=== PATIENT | female | born 1945 | race Caucasian/White ===

== ENCOUNTER 2017-06-10 06:31 | Day surgery (SDC) | payer MEDICARE, BC ==
[2017-06-10] MEDS ORDERED: Dextrose 5%-Lactated Ringers 1,000 ML IV SCH (07:00)
[2017-06-10] MEDS ORDERED: Glycopyrrolate 0.2 MG/ML 2 ML SDV IVPUSH ONE (07:00)
[2017-06-10] MEDS ORDERED: Midazolam 1 MG/ML 2 ML SDV ONE (08:28)
[2017-06-10] MEDS ORDERED: fentaNYL 100 MCG/2 ML SDV ONE (08:28)
[2017-06-10] MEDS ORDERED: Propofol 200 MG/20 ML SDV ONE (08:28)
[2017-06-10 09:41] VITALS: BP 146/68
--- NOTE | 2017-06-14 09:25 | OR ---
DATE OF PROCEDURE: 06/10/2017 PREOPERATIVE DIAGNOSIS: Epigastric discomfort with history of gastric bezoar. POSTOPERATIVE DIAGNOSES: 1. 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 2. Large gastric bezoar. OPERATIVE PROCEDURE: Upper GI endoscopy with biopsy of esophagogastric junction for histologic evaluation. ANESTHESIA: IV sedation. INDICATION FOR PROCEDURE: A 72-year-old female presenting with some worsening epigastric discomfort. This occurs particularly in the postprandial period and is associated with certain foods, to a greater extent particularly meats. She has a history of a large gastric bezoar in the past and has been treated with a combination of Reglan, along with proton pump inhibitors. Presently, she is off both of those, and plan is to proceed with an upper GI endoscopy with biopsies as indicated. Potential risks including bleeding and perforation were discussed, and the patient wishes to proceed. DETAILS OF PROCEDURE: The patient was taken to the operating room and placed in a left lateral decubitus position. IV sedation was administered, after which the upper GI endoscope was passed orally through the length of the esophagus and into the stomach with retroflexion view of the fundus, and thereafter through the pyloric channel and into the proximal duodenum. The findings included normal hypopharynx, larynx, upper esophageal sphincter, esophageal body. At the EG junction, she was noted to have a small hiatal hernia. There was some upward extension of the gastroesophageal junction mucosal line, suggestive of possible underlying Brown's esophagus. There was however little in the way of gross inflammation. No stricturing or other signs of neoplasia. Within the stomach, the patient had a large bezoar consisting of collection of old food, predominantly vegetable matter. This was not associated with any significant inflammation of the gastric mucosal surfaces. The pyloric channel was wide open and the duodenum at the junction of the third and fourth portions was unremarkable. At this point, the scope was then withdrawn into esophagogastric junction. Biopsies were obtained at that area for histologic evaluation. Minimal bleeding from the biopsy sites was seen, and the procedure was then concluded. PLAN: The plan will be to start the patient on Reglan 10 mg p.o. 1/2 hour a.c. and at bedtime. She is instructed that, if she feels that she is having side effects from this, she can cut the pills in half. Otherwise, I do not think we need to restart the patient on either H2 graeme or proton pump inhibitor, as neither the stomach nor the esophagogastric junction show significant inflammation. This would appear to be primarily gastroparesis issue, and the prokinetic agents may be useful. Also have the dietary people review the anti-bezoar diet regimen with the patient and prior to discharge today, and follow up will be with Dr. Moore in [facility] in 3 weeks. Milo Moore MD /[id number]
== END 2017-06-10 10:35 | disposition home or self-care (01) ==
LOC: JP.SDS 06:31
PROVIDERS: ATTEND Surgery
DX: K29.50 Unspecified chronic gastritis without bleeding (principal); K21.0 Gastro-esophageal reflux disease with esophagitis; T18.2XXA Foreign body in stomach, initial encounter; K44.9 Diaphragmatic hernia without obstruction or gangrene; I10 Essential (primary) hypertension; E11.9 Type 2 diabetes mellitus without complications; Z88.8 Allergy status to other drugs, medicaments and biological substances; Z91.011 Allergy to milk products
CPT/HCPCS: 43239; J2250; J2704; J3010; J7042; 88305; J3490

== ENCOUNTER 2017-12-18 13:10 | Emergency (ER) | payer MEDICARE, BC ==
[2017-12-18] MEDS ORDERED: Aspirin 81 MG Tab.Chew ONE (13:21)
[2017-12-18] MEDS ORDERED: Aspirin 81 MG Tab.Chew PO ONE (13:24)
[2017-12-18] MEDS: Nitroglycerin 0.4 MG Tab.SL SL PRN ×2 (13:33→14:00)
[2017-12-18] MEDS: Sodium Chloride 0.9% 10 ML Syringe FLUSH PRN ×2 (13:34→14:17)
--- NOTE | 2017-12-18 13:55 | EDM.PDOC ---
ED HPI GENERAL MEDICAL PROBLEM - General Chief Complaint: Chest Pain Stated Complaint: CHEST PAIN Time Seen by Provider: 12/18/17 13:27 Source of Information: Reports: Patient History Limitations: Reports: No Limitations - History of Present Illness INITIAL COMMENTS - FREE TEXT/NARRATIVE: Mrs. Steele presents to the emergency room for complaints of left chest pressure with radiation to her left arm that started at 1200 today. She reports when she developed the pain at home she became diaphoretic. She denies nausea, vomiting or difficulty breathing. She states she took 1/2 tab baby ASA this morning. She reports history of DM II, stress test in the past that was negative. - Related Data Allergies Allergy/AdvReac Type Severity Reaction Status Date / Time milk Allergy Rash Verified 06/10/17 06:52 codeine AdvReac Nausea Verified 07/03/14 06:46 lisinopril AdvReac Cough Verified 07/03/14 06:46 Home Meds: Home Meds Aspirin [Halfprin] 81 mg PO DAILY 06/01/14 [History] Calcium Carbonate/Vitamin D3 [Calcium 500 + Vit D 200 Caplet] 1 each PO BID 07/15 [History] Cholecalciferol (Vitamin D3) [Vitamin D] 1,000 unit PO DAILY 06/01/14 [History] Losartan Potassium 25 mg PO DAILY 06/01/14 [History] Metoclopramide HCl [Reglan] 5 mg PO BID 06/01/14 [History] Multivitamin with Minerals [Multiple Vitamin] 1 tab PO DAILY 06/01/14 [History] [place]-3 Fatty Acids [[place]-3] 1,000 mg PO DAILY 06/01/14 [History] atorvaSTATin Calcium [Atorvastatin Calcium] 20 mg PO DAILY 06/01/14 [History] metFORMIN [Glucophage] 750 mg PO QAM 06/01/14 [History] Cyanocobalamin (Vitamin B12) [Vitamin B12] 1,000 mcg PO DAILY 06/04/14 [History] Papaya [Papaya Enzyme] 4 tab PO ACBRKBED PRN 06/29/14 [History] metFORMIN [Glucophage] 500 mg PO QPM 06/29/14 [History] Sennosides/Docusate Sodium [Senokot-S Tablet] 2 tab PO DAILY PRN 06/09/17 [ History] Past Medical History HEENT History: Reports: Impaired Vision Cardiovascular History: Reports: High Cholesterol Gastrointestinal History: Reports: Chronic Constipation, GERD, Hiatal Hernia Genitourinary History: Reports: None MAKEUP ARTIST History: Reports: Fibroids, Musculoskeletal History: Reports: None Endocrine/Metabolic History: Reports: Diabetes, Type II Hematologic History: Reports: Anemia - Infectious Disease History Infectious Disease History: Reports: C-Difficile, Measles, Mumps - Past Surgical History Head Surgeries/Procedures: Reports: None HEENT Surgical History: Reports: None Cardiovascular Surgical History: Reports: None GI Surgical History: Reports: Cholecystectomy, Colonoscopy Female Surgical History: Reports: Hysterectomy Endocrine Surgical History: Reports: None Musculoskeletal Surgical History: Reports: Knee Replacement, Other (See Below) Other Musculoskeletal Surgeries/Procedures:: right knee Dermatological Surgical History: Reports: None Social & Family History - Family History Family Medical History: Noncontributory - Tobacco Use Smoking Status *Q: Never Smoker - Caffeine Use Caffeine Use: Reports: Coffee, Soda, Tea ED ROS GENERAL - Review of Systems Review Of Systems: See Below Constitutional: Denies: Fever, Chills, Malaise, Weakness HEENT: Reports: No Symptoms Respiratory: Denies: Shortness of Breath, Wheezing, Cough, Sputum, Hemoptysis Cardiovascular: Reports: Chest Pain, Other (chest pressure with radiationto left arm). Denies: Dyspnea on Exertion, Edema, Lightheadedness, Palpitations, PND, Syncope Endocrine: Reports: No Symptoms GI/Abdominal: Reports: No Symptoms : Reports: No Symptoms Musculoskeletal: Reports: Arm Pain, Other (left arm pain radiating from chest) Skin: Reports: No Symptoms Neurological: Reports: No Symptoms Psychiatric: Reports: No Symptoms Hematologic/Lymphatic: Reports: No Symptoms Immunologic: Reports: No Symptoms ED EXAM, GENERAL - Physical Exam Exam: See Below Free Text/Narrative:: Mrs. Steele is an alert and oriented 72 year old female presenting with complaints of chest pain/pressure with radiation to her left arm that started at 1200 today. She states she has not had pain like this before. In the ER she states her pain is 4-5/10. At home her pain was 10/10 with diaphoresis. Exam Limited By: No Limitations General Appearance: Alert, WD/WN, Moderate Distress Eye Exam: Bilateral Eye: EOMI, Normal Inspection, PERRL Ears: Normal External Exam, Normal Canal, Hearing Grossly Normal, Normal TMs Ear Exam: Bilateral Ear: Auricle Normal, Canal Normal, TM normal Nose: Normal Inspection, Normal Mucosa, No Blood Throat/Mouth: Normal Inspection, Normal Lips, Normal Gums, Normal Oropharynx, Normal Voice, No Airway Compromise Head: Atraumatic, Normocephalic Neck: Normal Inspection, Supple, Non-Tender, Full Range of Motion. No: Lymphadenopathy (R), Lymphadenopathy (L) Respiratory/Chest: No Respiratory Distress, Lungs Clear, Normal Breath Sounds, No Accessory Muscle Use, Chest Non-Tender Cardiovascular: Normal Peripheral Pulses, Regular Rate, Rhythm, No Edema, No Gallop, No Rub, Other (Faint murmur noted) Peripheral Pulses: 2+: Radial (L), Radial (R), Dorsalis Pedis (L), Dorsalis Pedis (R) GI/Abdominal: Normal Bowel Sounds, Soft, Non-Tender, No Distention, No Abnormal Bruit, No Mass Back Exam: Normal Inspection, Full Range of Motion. No: CVA Tenderness (R), CVA Tenderness (L) Extremities: Normal Inspection, Normal Range of Motion, Non-Tender, No Pedal Edema, Normal Capillary Refill Neurological: Alert, Oriented, CN II-XII Intact, Normal Cognition, Normal Gait, Normal Reflexes, No Motor/Sensory Deficits Psychiatric: Normal Affect, Anxious Skin Exam: Warm, Dry, Intact, Normal Color, No Rash Lymphatic: No Adenopathy Course - Vital Signs Last Recorded V/S: Last Vital Signs Temp 36.1 C 12/18/17 13:41 Pulse 74 12/18/17 15:53 Resp 16 12/18/17 15:53 BP 137/62 12/18/17 16:31 Pulse Ox 96 12/18/17 15:53 - Orders/Labs/Meds Orders: Active Orders 24 hr Category Date Time Status EKG Documentation Completion [RC] ASDIRECTED Care 12/18/17 13:25 Active Chest 1V Frontal [CR] Stat Exams 12/18/17 13:24 Taken Saline Lock Insert [OM.PC] Routine Oth 12/18/17 13:24 Ordered EKG 12 Lead [EK] Routine Ther 12/18/17 13:24 Ordered Labs: Laboratory Tests 12/18/17 12/18/17 12/18/17 Range/Units 13:29 13:29 15:30 WBC 7.9 (4.5-11.0) K/uL RBC 3.92 (3.30-5.50) M/uL Hgb 11.8 L (12.0-15.0) g/dL Hct 36.4 (36.0-48.0) % MCV 93 (80-98) fL MCH 30 (27-31) pg MCHC 32 (32-36) % Plt Count 304 (150-400) K/uL Neut % (Auto) 56 (36-66) % Lymph % (Auto) 35 (24-44) % [place] % (Auto) 7 H (2-6) % Eos % (Auto) 1 L (2-4) % Baso % (Auto) 1 (0-1) % Sodium 137 L (140-148) mmol/L Potassium 3.9 (3.6-5.2) mmol/L Chloride 101 (100-108) mmol/L Carbon Dioxide 26 (21-32) mmol/L Anion Gap 13.9 (5.0-14.0) mmol/L BUN 11 (7-18) mg/dL Creatinine 0.8 (0.6-1.0) mg/dL Est Cr Clr Drug Dosing 45.66 mL/min Estimated GFR (MDRD) > 60 (>60) Glucose 223 H (74-106) mg/dL Calcium 8.9 (8.5-10.1) mg/dL Total Bilirubin 0.5 (0.2-1.0) mg/dL AST 21 (15-37) U/L ALT 25 (12-78) U/L Alkaline Phosphatase 98 (46-116) U/L Troponin I < 0.017 < 0.017 (0.000-0.056) ng/mL Total Protein 7.3 (6.4-8.2) g/dL Albumin 3.3 L (3.4-5.0) g/dL Globulin 4.0 H (2.3-3.5) g/dL Albumin/Globulin Ratio 0.8 L (1.2-2.2) TSH, Ultra Sensitive 1.260 (0.358-3.740) uIU/mL Patient lab work reviewed, trop negative. Meds: Medications Discontinued Medications Generic Name Dose Route Start Last Admin Trade Name Freq PRN Reason Stop Dose Admin Aspirin Confirm 12/18/17 13:21 12/18/17 14:01 Aspirin Administered 12/18/17 13:22 324 mg Dose Administration 324 mg .ROUTE .STK-MED ONE Aspirin 324 mg 12/18/17 13:24 12/18/17 13:20 Aspirin PO 12/18/17 13:25 324 mg ONETIME ONE Administration Al Hydroxide/Mg Hydroxide 15 0 ml 12/18/17 14:12 12/18/17 14:17 ml/ Lidocaine HCl 15 ml PO 12/18/17 14:13 15 ml ONETIME ONE Administration Morphine Sulfate 2 mg 12/18/17 14:04 12/18/17 14:10 Morphine IVPUSH 12/18/17 14:05 2 mg ONETIME ONE Administration Nitroglycerin 0.4 mg 12/18/17 13:24 12/18/17 14:00 Nitrostat SL 0.4 mg Q5M PRN Administration Chest Pain Ondansetron HCl 4 mg 12/18/17 14:05 12/18/17 14:13 Zofran IVPUSH 12/18/17 14:06 4 mg ONETIME ONE Administration Sodium Chloride 10 ml 12/18/17 13:24 12/18/17 14:17 Saline Flush FLUSH 10 ml ASDIRECTED PRN Administration Keep Vein Open No significant improvement with use of nitro SL, we will try Morphine 2mg IV, zofran 4mg IV if nausea develops. Pain improved with morphine and GI cocktail. - Radiology Interpretation Free Text/Narrative:: Chest x-ray reviewed, wet read, no acute findings. Radiologist read pending. - Re-Assessments/Exams Free Text/Narrative Re-Assessment/Exam: 12/18/17 14:27 Patient reports improvement of pain after morphine 2mg IV, she continues to have some pain. GI cocktail administered. Patient status, history, lab work, EKG discussed with Dr. Leggett, we will repeat trop two hours after initial one done. 12/18/17 14:46 Heart score calculated at 5. 12/18/17 16:38 Second trop negative, she will be discharged to home. Patient will follow up with her primary provider as scheduled this . Follow up with Dr. Moore in the next two weeks. Departure - Departure Time of Disposition: 16:40 Disposition: Home, Self-Care 01 Condition: Good Clinical Impression: Atypical chest pain Instructions: Nonspecific Chest Pain, [id number] Referrals: PCP,None [Primary Care Provider] - Forms: ED Department Discharge Additional Instructions: You have been evaluated and treated for chest pain today. Your troponin was negative x 2. EKG of your heart did not show any acute findings, chest x-ray does not show any acute findings. Cardiac monitoring did not show any irregular heart beats or rhythms. Continue your current medications. Keep yourself hydrated. Follow up with your primary provider as scheduled this . Follow up with Dr. Moore for an evaluation of status due to your history of Bezoar's and this could be the cause of your pain. If you develop any worsening, issues or concerns, return to the emergency room. - My Orders Last 24 Hours: My Active Orders 12/18/17 13:24 Chest 1V Frontal [CR] Stat Saline Lock Insert [OM.PC] Routine EKG 12 Lead [EK] Routine 12/18/17 13:25 EKG Documentation Completion [RC] ASDIRECTED - Assessment/Plan Last 24 Hours: My Active Orders 12/18/17 13:24 Chest 1V Frontal [CR] Stat Saline Lock Insert [OM.PC] Routine EKG 12 Lead [EK] Routine 12/18/17 13:25 EKG Documentation Completion [RC] ASDIRECTED Assessment:: Atypical chest pain Plan: Patient evaluated and treated for chest pain today. troponin was negative x 2. EKG did not show any acute findings, chest x-ray does not show any acute findings. Cardiac monitoring did not show any irregular heart beats or rhythms. Continue current medications. Keep hydrated. Follow up with primary provider as scheduled this . Follow up with Dr. Moore for an evaluation of status due to history of Bezoar's and this could be the cause of pain. If you develop any worsening, issues or concerns, return to the emergency room.
[2017-12-18] MEDS ORDERED: Morphine 2 MG/ML Syringe IVPUSH ONE (14:04)
[2017-12-18] MEDS ORDERED: Ondansetron 4 MG/2 ML SDV IVPUSH ONE (14:05)
[2017-12-18] MEDS ORDERED: Alum Hydrox/Mag Hydrox/Simeth 15 ML, Lidocaine 2% 15 ML PO ONE ×2 (14:12)
[2017-12-18 16:32] VITALS: BP 137/62
--- NOTE | 2017-12-20 09:15 | CR ---
CHEST: Portable CLINICAL HISTORY:Chest pain COMPARISON:2006 FINDINGS: Heart and pulmonary vascularity appear normal. There are atherosclerotic changes in the ao rta. No infiltrate effusion or pneumothorax is seen. IMPRESSION: No acute cardiopulmonary process
== END 2017-12-18 17:13 | disposition home or self-care (01) ==
LOC: JP.ED 13:10
DX: R07.89 Other chest pain (principal); E11.9 Type 2 diabetes mellitus without complications; Z91.011 Allergy to milk products; Z88.8 Allergy status to other drugs, medicaments and biological substances; Z79.82 Long term (current) use of aspirin
CPT/HCPCS: 36415; 71045; 80053; 84443; 84484; 85025; 93005; 96374; 96375; 99285; A9270; J2270; J2405; J7050

== ENCOUNTER 2019-02-22 04:46 | Emergency (ER) | payer MEDICARE ==
[2019-02-22] MEDS ORDERED: Ketorolac 30 MG/ML SDV IM ONE (05:46)
--- NOTE | 2019-02-22 05:49 | EDM.PDOC ---
ED HPI GENERAL MEDICAL PROBLEM - General Chief Complaint: Back Pain or Injury Stated Complaint: BACK PAIN Time Seen by Provider: 02/22/19 05:35 Source of Information: Reports: Patient, Family, Old Records, RN Notes Reviewed History Limitations: Reports: No Limitations - History of Present Illness INITIAL COMMENTS - FREE TEXT/NARRATIVE: 73-year-old female presents emergency department today complaint of chest pain, back pain, arm pain flank pain also urinary frequency, she is a very poor historian difficult to gather a history and review of systems. Recently underwent catheterization last year by her report had no abnormality has also started reclast Bilateral Lower Back Pain Score (Numeric/FACES): 9 abd pain Pain Score (Numeric/FACES): 9 - Related Data Allergies Allergy/AdvReac Type Severity Reaction Status Date / Time milk Allergy Rash Verified 02/22/19 05:15 codeine AdvReac Nausea Verified 02/22/19 05:15 lisinopril AdvReac Cough Verified 02/22/19 05:15 Home Meds: Home Meds Aspirin [Halfprin] 81 mg PO DAILY 06/01/14 [History] Calcium Carbonate/Vitamin D3 [Calcium 500 + Vit D 200 Caplet] 1,500 mg PO DAILY 06/01/14 [History] Losartan Potassium 25 mg PO DAILY 06/01/14 [History] Metoclopramide HCl [Reglan] 10 mg PO QID 06/01/14 [History] Multivitamin with Minerals [Multiple Vitamin] 1 tab PO DAILY 06/01/14 [History] [place]-3 Fatty Acids [[place]-3] 1,000 mg PO DAILY 06/01/14 [History] atorvaSTATin Calcium [Atorvastatin Calcium] 20 mg PO DAILY 06/01/14 [History] metFORMIN [Glucophage] 750 mg PO QAM 06/01/14 [History] Papaya [Papaya Enzyme] 4 tab PO ACBRKBED PRN 06/29/14 [History] metFORMIN [Glucophage] 500 mg PO QPM 06/29/14 [History] Sennosides/Docusate Sodium [Senokot-S Tablet] 2 tab PO BID PRN 06/09/17 [History ] Zoledronic Acid in Water [Reclast] 5 mg IV ASDIRECTED 02/22/19 [History] Past Medical History HEENT History: Reports: Impaired Vision Cardiovascular History: Reports: High Cholesterol Gastrointestinal History: Reports: Chronic Constipation, GERD, Hiatal Hernia Genitourinary History: Reports: Pyelonephritis OVEN DAUBER History: Reports: Fibroids, Musculoskeletal History: Reports: Osteoporosis Endocrine/Metabolic History: Reports: Diabetes, Type II Hematologic History: Reports: Anemia - Infectious Disease History Infectious Disease History: Reports: Chicken Pox - Past Surgical History Head Surgeries/Procedures: Reports: None Cardiovascular Surgical History: Reports: Other (See Below) Other Cardiovascular Surgeries/Procedures: angiogram GI Surgical History: Reports: Cholecystectomy, Colonoscopy Female Surgical History: Reports: Hysterectomy, Oophorectomy Musculoskeletal Surgical History: Reports: Knee Replacement, Other (See Below) Other Musculoskeletal Surgeries/Procedures:: right knee Social & Family History - Family History Family Medical History: Noncontributory - Tobacco Use Smoking Status *Q: Never Smoker - Caffeine Use Caffeine Use: Reports: Coffee - Recreational Drug Use Recreational Drug Use: No ED ROS GENERAL - Review of Systems Review Of Systems: See Below Constitutional: Reports: Fever HEENT: Reports: No Symptoms Respiratory: Reports: Shortness of Breath Cardiovascular: Reports: Chest Pain GI/Abdominal: Reports: No Symptoms : Reports: Flank Pain, Frequency Musculoskeletal: Reports: Shoulder Pain, Back Pain Skin: Reports: No Symptoms Neurological: Reports: No Symptoms ED EXAM, GENERAL - Physical Exam Exam: See Below Free Text/Narrative:: General: Female, not in any distress, alert and oriented x3 HEENT: head is atraumatic normocephalic, eyes pupils equal round reactive to light, sclera clear no conjunctivitis appreciated. Ears tympanic membranes clear and donovan landmarks and light reflex are present bilaterally canals are clear. Nose no septal deviation, nares are clear, no blood present. Mouth mucosa is moist and pink no erythema or exudate noted in soft palate, tongue is midline uvula is midline, dentition is intact. Neck: Supple no thyromegaly no tracheal deviation. Nodes: Cervical nodes subclavicular nodes nontender no palpable lymphadenopathy noted. Lungs: clear to auscultation bilaterally with symmetrical respirations, no adventitious noise appreciated. CV: Regular rate and rhythm S1 and S2 appreciated no murmurs rubs or gallops noted. Abdomen: Soft, nontender, no palpable masses or organomegaly appreciated, no distention no guarding bowel sounds are present, Extremities: No lower extremity edema appreciated, Course - Vital Signs Last Recorded V/S: Last Vital Signs Temp 99.0 F 02/22/19 05:14 Pulse 119 H 02/22/19 05:14 Resp 16 02/22/19 05:14 BP 127/57 L 02/22/19 05:14 Pulse Ox 95 02/22/19 05:14 - Orders/Labs/Meds Orders: Active Orders 24 hr Category Date Time Status Cardiac Monitoring [RC] .As Directed Care 02/22/19 05:45 Active EKG Documentation Completion [RC] ASDIRECTED Care 02/22/19 05:46 Active CULTURE URINE [RM] Urgent Lab 02/22/19 06:43 Ordered EKG 12 Lead [EK] Stat Ther 02/22/19 05:45 Ordered Labs: Laboratory Tests 02/22/19 02/22/19 02/22/19 Range/Units 06:00 06:00 06:28 WBC 12.3 H (4.5-11.0) K/uL RBC 3.67 (3.30-5.50) M/uL Hgb 11.7 L (12.0-15.0) g/dL Hct 35.1 L (36.0-48.0) % MCV 96 (80-98) fL MCH 32 H (27-31) pg MCHC 33 (32-36) % Plt Count 340 (150-400) K/uL Neut % (Auto) 93 H (36-66) % Lymph % (Auto) 2 L (24-44) % [place] % (Auto) 4 (2-6) % Eos % (Auto) 0 L (2-4) % Baso % (Auto) 0 (0-1) % Sodium 135 L (140-148) mmol/L Potassium 3.9 (3.6-5.2) mmol/L Chloride 99 L (100-108) mmol/L Carbon Dioxide 27 (21-32) mmol/L Anion Gap 12.9 (5.0-14.0) mmol/L BUN 11 (7-18) mg/dL Creatinine 0.7 (0.6-1.0) mg/dL Est Cr Clr Drug Dosing 51.41 mL/min Estimated GFR (MDRD) > 60 (>60) Glucose 258 H (74-106) mg/dL Calcium 8.8 (8.5-10.1) mg/dL Total Bilirubin 0.6 (0.2-1.0) mg/dL AST 25 (15-37) U/L ALT 24 (12-78) U/L Alkaline Phosphatase 117 H (46-116) U/L Troponin I < 0.017 (0.000-0.056) ng/mL Total Protein 7.1 (6.4-8.2) g/dL Albumin 3.0 L (3.4-5.0) g/dL Globulin 4.1 H (2.3-3.5) g/dL Albumin/Globulin Ratio 0.7 L (1.2-2.2) Urine Color Yellow (YELLOW) Urine Appearance Slightly cloudy A (CLEAR) Urine pH 8.5 H (5.0-8.0) Ur Specific [place] 1.020 (1.008-1.030) Urine Protein Negative (NEGATIVE) mg/dL Urine Glucose (UA) 100 H (NEGATIVE) mg/dL Urine Ketones Negative (NEGATIVE) mg/dL Urine Occult Blood Small H (NEGATIVE) Urine Nitrite Positive H (NEGATIVE) Urine Bilirubin Negative (NEGATIVE) Urine Urobilinogen 0.2 (0.2-1.0) EU/dL Ur Leukocyte Esterase Small H (NEGATIVE) Urine RBC 0-5 (0-5) Urine WBC 5-10 H (0-5) Ur Epithelial Cells Few Amorphous Sediment Not seen Urine Bacteria Many Urine Mucus Not seen Meds: Medications Discontinued Medications Generic Name Dose Route Start Last Admin Trade Name Alconq PRN Reason Stop Dose Admin Ketorolac Tromethamine 30 mg 02/22/19 05:46 02/22/19 06:01 Toradol IM 02/22/19 05:47 30 mg ONETIME ONE Administration Departure - Departure Time of Disposition: 06:47 Disposition: Home, Self-Care 01 Condition: Fair Clinical Impression: Urinary tract infection Qualifiers: Urinary tract infection type: acute cystitis Hematuria presence: without hematuria Qualified Code(s): N30.00 - Acute cystitis without hematuria Referrals: Ofelia Okeefe MD [Primary Care Provider] - Forms: ED Department Discharge Additional Instructions: Take full course of antibiotics, Please followup with your primary care provider in 3-5 days if not better, please call return to the emergency department with worsening of symptoms. - My Orders Last 24 Hours: My Active Orders 02/22/19 05:45 Cardiac Monitoring [RC] .As Directed EKG 12 Lead [EK] Stat 02/22/19 05:46 EKG Documentation Completion [RC] ASDIRECTED 02/22/19 06:43 CULTURE URINE [RM] Urgent - Assessment/Plan Last 24 Hours: My Active Orders 02/22/19 05:45 Cardiac Monitoring [RC] .As Directed EKG 12 Lead [EK] Stat 02/22/19 05:46 EKG Documentation Completion [RC] ASDIRECTED 02/22/19 06:43 CULTURE URINE [RM] Urgent Plan: Assessment Acuity = acute Site and laterality = urinary tract infection Etiology = probable bacterial cause Manifestations = the bone pain is probably side effect of the reclast Location of injury = Home Lab values = WBC elevated 12.3 consistent leukocytosis, glucose elevated 258 consistent hyperglycemia troponin was negative urinalysis positive nitrates 5- 10 WBCs consistent with pyuria chest x-ray shows no acute process EKG demonstrates sinus rhythm no signs ischemia Plan Did review lab work with her and discussed use the Reclast which she gets once a year, placed on Bactrim DS one tab by mouth twice a day 3 days antibiotics faxed to [facility] follow-up primary care 3-5 days if not better cultures pending This note was dictated using [employer] voice recognition software please call with any questions on syntax or grammar.
[2019-02-22 05:50] VITALS: BP 127/57; PULSE 119
--- NOTE | 2019-02-22 06:30 | CRLCR ---
INDICATION: CHEST PAIN TECHNIQUE: Chest 2 views. COMPARISON: None. FINDINGS: Cardiovascular and mediastinum: Heart size and vasculature are normal in caliber and appearance. Mediastinum is within normal limits. Lungs and pleural spaces: Lungs are clear. No sign of infiltrate or mass. No sign of pleural effusion. No pneumothorax. Bones and soft tissues: No significant findings. IMPRESSION: Unremarkable chest. Dictated by: Kamari Powell MD @ 02/22/2019 06:28:29 (Electronically Signed)
== END 2019-02-22 06:58 | disposition home or self-care (01) ==
LOC: JP.ED 04:46
DX: N30.00 Acute cystitis without hematuria (principal); E11.9 Type 2 diabetes mellitus without complications; E78.00 Pure hypercholesterolemia, unspecified; Z86.2 Personal history of diseases of the blood and blood-forming organs and certain disorders involving the immune mechanism; Z88.5 Allergy status to narcotic agent; Z88.8 Allergy status to other drugs, medicaments and biological substances; Z91.011 Allergy to milk products; Z79.82 Long term (current) use of aspirin; Z79.84 Long term (current) use of oral hypoglycemic drugs; Z79.899 Other long term (current) drug therapy
CPT/HCPCS: 36415; 71046; 80053; 81001; 84484; 85025; 87086; 87088; 87186; 93005; 96372; 99283; 99285; J1885

== ENCOUNTER 2020-01-08 06:22 | Day surgery (SDC) | payer MEDICARE ==
[2020-01-08] MEDS ORDERED: Dextrose 5%-Lactated Ringers 1,000 ML IV SCH (07:00)
[2020-01-08] MEDS ORDERED: Propofol 200 MG/20 ML SDV ONE (07:05)
[2020-01-08] MEDS ORDERED: fentaNYL 100 MCG/2 ML SDV ONE (07:05)
[2020-01-08] MEDS ORDERED: Midazolam 1 MG/ML 2 ML SDV ONE (07:05)
[2020-01-08 08:49] VITALS: BP 157/73; PULSE 71
--- NOTE | 2020-01-14 11:43 | OR ---
DATE OF PROCEDURE: 01/08/2020 SURGEON: Milo Moore MD PREOPERATIVE DIAGNOSES: Persistent epigastric discomfort and nausea associated with history of diabetic gastroparesis and associated gastric bezoar. POSTOPERATIVE DIAGNOSES: Persistent epigastric discomfort and nausea associated with history of diabetic gastroparesis and associated gastric bezoar, persistent bezoar. OPERATIVE PROCEDURE: Upper GI endoscopy with antral biopsies for CLOtest. ANESTHESIA: IV sedation. INDICATIONS FOR PROCEDURE: A 74-year-old patient presenting with ongoing epigastric discomfort and some nausea along with ongoing reflux. She has a history of bezoar formation likely related to diabetic gastroparesis. She has been intolerant to Reglan and Zithromax, i.e., not tolerating promotility agent. Plan is to proceed with an upper GI endoscopy to establish whether or not there were some retained contents within the stomach. Potential risks of the procedure including bleeding, infection, aspiration of gastric contents, and such were reviewed, and the patient wishes to proceed. DETAILS OF PROCEDURE: The patient was taken to the operating room, placed in a left lateral decubitus position. IV sedation was administered, after which the upper GI endoscope was passed orally through the length of the esophagus and into the stomach, and from there through the pyloric channel and roughly to the junction of the third and fourth portions of the duodenum. FINDINGS: Included some redness in the distal esophagus and she did have an intact Torsten effect in that area. Within the stomach, there was a striking large amount of bezoar formation along with retained bile. This was associated with some redness in the antrum and otherwise no erosions or ulcers were seen, and the pyloric channel and proximal duodenum were unremarkable. At this point, biopsies were obtained from the antrum and sent for CLOtest for H. pylori. Minimal bleeding from the biopsy sites was seen and the procedure was then concluded. The patient was taken to the recovery room in satisfactory condition. The patient at this point will probably be best served by means of a proximal gastrectomy with [id number]-[id number] reconstruction. This would obviate the problem of the gastroparesis and also as a side effect could probably put her diabetes into remission. We will see the patient and her back on Wednesday to discuss treatment options. Milo Moore MD /[id number]
== END 2020-01-08 08:50 | disposition home or self-care (01) ==
LOC: JP.SDS 06:22
PROVIDERS: ATTEND Surgery
DX: T18.2XXA Foreign body in stomach, initial encounter (principal); R10.13 Epigastric pain; R11.0 Nausea; E11.43 Type 2 diabetes mellitus with diabetic autonomic (poly)neuropathy; K31.84 Gastroparesis; I10 Essential (primary) hypertension; K21.9 Gastro-esophageal reflux disease without esophagitis
CPT/HCPCS: 43239; 87081; J2250; J2704; J3010; J7121

== ENCOUNTER 2021-01-14 07:22 | Emergency (ER) | payer MEDICARE ==
[2021-01-14 07:45] VITALS: BP 179/79; PULSE 85
--- NOTE | 2021-01-14 08:11 | EDM.PDOC ---
ED HPI GENERAL MEDICAL PROBLEM - General Chief Complaint: Laceration Stated Complaint: FELL YESTERDAY/HIT HEAD Time Seen by Provider: 01/14/21 07:55 Source of Information: Reports: Patient, Family History Limitations: Reports: No Limitations - History of Present Illness INITIAL COMMENTS - FREE TEXT/NARRATIVE: 75-year-old female slipped on the stairs yesterday about 16 hours ago, hitting the back of her head and sustaining a small laceration and also landing on her left elbow. She developed a bruise on her left elbow but otherwise felt reasonably good, did not get knocked out and felt she was fine. This morning however when she woke up she could barely get out of bed because she hurts all over and her wanted her checked. He is very adamant that she needs a head scan because of her age and her head injury, she is not on anticoagulants. She has soreness in her muscles from the base of the head down the back and especially into the lower back but she has full range of motion, did her stretching exercises without problem this morning. Despite the bruise on her elbow she has full range of motion of the left arm. Onset: Sudden Duration: Hour(s): (16 hours ago) Location: Reports: Head, Back, Upper Extremity, Left Improves with: Reports: None Worsens with: Reports: Movement Head Pain Score (Numeric/FACES): 9 - Related Data Allergies Allergy/AdvReac Type Severity Reaction Status Date / Time milk Allergy Rash Verified 01/08/20 06:55 codeine AdvReac Nausea Verified 01/08/20 06:55 lisinopril AdvReac Cough Verified 01/08/20 06:55 Home Meds: Home Meds Aspirin [Halfprin] 81 mg PO DAILY 06/01/14 [History] Calcium Carbonate/Vitamin D3 [Calcium 500 + Vit D 200 Caplet] 1,000 mg PO DAILY 06/01/14 [History] Losartan Potassium 25 mg PO DAILY 06/01/14 [History] Metoclopramide HCl [Reglan] 10 mg PO QID 06/01/14 [History] Multivitamin with Minerals [Multiple Vitamin] 1 tab PO DAILY 06/01/14 [History] atorvaSTATin Calcium [Atorvastatin Calcium] 20 mg PO DAILY 06/01/14 [History] metFORMIN [Glucophage] 500 mg PO DAILY 06/29/14 [History] Sennosides/Docusate Sodium [Senokot-S Tablet] 2 tab PO BID PRN 06/09/17 [History] Loratadine [Claritin] 10 mg PO DAILY PRN 01/04/20 [History] Past Medical History HEENT History: Reports: Cataract, Impaired Vision Cardiovascular History: Reports: High Cholesterol, Hypertension Gastrointestinal History: Reports: Chronic Constipation, GERD, Hiatal Hernia, Other (See Below) Other Gastrointestinal History: hx bezoar Genitourinary History: Reports: Pyelonephritis [employer] History: Reports: Fibroids, Musculoskeletal History: Reports: Arthritis, Osteoporosis Endocrine/Metabolic History: Reports: Diabetes, Type II Hematologic History: Reports: Anemia - Infectious Disease History Infectious Disease History: Reports: Chicken Pox - Past Surgical History Head Surgeries/Procedures: Reports: None HEENT Surgical History: Reports: None Cardiovascular Surgical History: Reports: Other (See Below) Other Cardiovascular Surgeries/Procedures: angiogram GI Surgical History: Reports: Cholecystectomy, Colonoscopy, EGD Female Surgical History: Reports: Section, Hysterectomy, Oophorectomy Endocrine Surgical History: Reports: None Musculoskeletal Surgical History: Reports: Knee Replacement, Other (See Below) Other Musculoskeletal Surgeries/Procedures:: right knee Dermatological Surgical History: Reports: None Social & Family History - Family History Family Medical History: No Pertinent Family History - Tobacco Use Tobacco Use Status *Q: Never Tobacco User - Caffeine Use Caffeine Use: Reports: Coffee - Recreational Drug Use Recreational Drug Use: No ED ROS GENERAL - Review of Systems Review Of Systems: See Below Constitutional: Denies: Fever, Chills HEENT: Denies: Vision Change Respiratory: Denies: Shortness of Breath Cardiovascular: Denies: Chest Pain GI/Abdominal: Denies: Nausea, Vomiting Musculoskeletal: Reports: Neck Pain, Back Pain, Other (Left arm pain around the elbow) Skin: Reports: Bruising (Some bruising around the left elbow, small laceration on the occiput of the scalp) Neurological: Reports: Headache (Mild frontal headache). Denies: Difficulty Walking, Weakness Psychiatric: Reports: No Symptoms ED EXAM, SKIN/RASH Exam: See Below Exam Limited By: No Limitations General Appearance: Alert, No Apparent Distress Eye Exam: Bilateral Eye: EOMI, PERRL Head: Other (1 cm laceration on the occiput of the scalp, wound is dry and not actively bleeding) Neck: Other (Paracervical muscle tenderness to palpation) Respiratory/Chest: No Respiratory Distress, Lungs Clear Cardiovascular: Regular Rate, Rhythm Back Exam: Paraspinal Tenderness (Diffuse paraspinal tenderness which is mild, somewhat worse in the lumbar area, no vertebral percussion tenderness) Extremities: Other (She does have a bruise and swelling over the olecranon area of the left elbow but no bony tenderness) Neurological: Alert, Oriented, No Motor/Sensory Deficits (Romberg is negative, no pronator drift) Psychiatric: Normal Affect, Normal Mood Course - Vital Signs Last Recorded V/S: Last Vital Signs Temp 97.3 F 01/14/21 07:51 Pulse 85 01/14/21 07:51 Resp 16 01/14/21 07:51 BP 179/79 H 01/14/21 07:51 Pulse Ox 98 01/14/21 07:51 - Re-Assessments/Exams Free Text/Narrative Re-Assessment/Exam: 01/14/21 08:10 Explained to the patient that his CT of the head is likely normal, observation along with Tylenol and ibuprofen will probably be all she needs but the was very concerned that she should have a scan. This was ordered. 01/14/21 09:[address] scan does show a very tiny spot of hemorrhage in the sulcus anteriorly. This was discussed with the patient and her , they will return tomorrow for repeat CT. Otherwise she can continue activity as tolerated. Return sooner if she develops weakness or other concerning symptoms. Departure - Departure Time of Disposition: 09:09 Disposition: Home, Self-Care 01 Clinical Impression: Cerebral hemorrhage following injury Qualifiers: Encounter type: initial encounter Laterality: left Loss of consciousness presence/duration: without LOC Qualified Code(s): S06.350A - Traumatic hemorrhage of left cerebrum without loss of consciousness, initial encounter Left elbow contusion Qualifiers: Encounter type: initial encounter Qualified Code(s): S50.02XA - Contusion of left elbow, initial encounter Occipital scalp laceration Qualifiers: Encounter type: initial encounter Qualified Code(s): S01.01XA - Laceration without foreign body of scalp, initial encounter - Discharge Information Instructions: Head Injury, Adult, Contusion, [id number] Referrals: Katelyn Lyons MD [Primary Care Provider] - Forms: ED Department Discharge Care Plan Goals: Return tomorrow at your convenience for repeat CT scan, I will discuss the results with you when they are available. Return sooner if you are worsening such as unexplained weakness or increased headache, and as needed Tylenol as appropriate. Sepsis Event Note (ED) - Evaluation Sepsis Screening Result: No Definite Risk - Focused Exam Vital Signs: Vital Signs Temp Pulse Resp BP Pulse Ox 01/14/21 07:51 97.3 F 85 16 179/79 H 98 01/14/21 07:44 97.3 F 85 16 179/79 H 98
--- NOTE | 2021-01-14 09:06 | CT ---
Head wo Cont CLINICAL HISTORY: Fall, head trauma COMPARISON: None TECHNIQUE: Transverse scans were obtained from the base of the skull through the vertex without IV contrast on a multislice, multidetector CT scanner. Auto dosage reduction and iterative reconstruction techniques employed. FINDINGS: There is concentric collection of what appears to be subarachnoid blood along the frontal falx to the left midline.. There is no mass effect. The basal cisterns and sulci over the convexities are normal. The ventricles are normal. There is a occipital scalp hematoma IMPRESSION: Small subarachnoid hemorrhage in the anterior portion of the sagittal sulcus.There is no mass effect. Short-term follow-up recommended
== END 2021-01-14 09:16 | disposition home or self-care (01) ==
LOC: JP.ED 07:22
DX: S06.350A Traumatic hemorrhage of left cerebrum without loss of consciousness, initial encounter (principal); S01.01XA Laceration without foreign body of scalp, initial encounter; S50.02XA Contusion of left elbow, initial encounter; E78.00 Pure hypercholesterolemia, unspecified; I10 Essential (primary) hypertension; E11.9 Type 2 diabetes mellitus without complications; Z79.84 Long term (current) use of oral hypoglycemic drugs; Z79.899 Other long term (current) drug therapy; Z91.011 Allergy to milk products; Z88.5 Allergy status to narcotic agent; Z88.8 Allergy status to other drugs, medicaments and biological substances; W18.09XA Striking against other object with subsequent fall, initial encounter
CPT/HCPCS: 70450; 70450-26; 99283-25

== ENCOUNTER 2021-07-06 23:05 | Emergency (ER) | payer MEDICARE ==
[2021-07-06] MEDS ORDERED: Aluminum Hydroxide/Magnesium Hydroxide/Simethicone Susp 30 ML Cup PO STA (23:17)
[2021-07-07] MEDS ORDERED: Sucralfate 1 GM Tab PO ONE (00:34)
[2021-07-07 00:48] VITALS: BP 108/57; PULSE 91
== END 2021-07-07 01:02 | disposition home or self-care (01) ==
LOC: JP.ED 23:05
DX: K21.00 Gastro-esophageal reflux disease with esophagitis, without bleeding (principal); I10 Essential (primary) hypertension; E11.9 Type 2 diabetes mellitus without complications; Z90.49 Acquired absence of other specified parts of digestive tract; Z90.710 Acquired absence of both cervix and uterus; Z88.5 Allergy status to narcotic agent; Z88.8 Allergy status to other drugs, medicaments and biological substances; Z91.011 Allergy to milk products; Z79.82 Long term (current) use of aspirin; Z79.84 Long term (current) use of oral hypoglycemic drugs; Z79.899 Other long term (current) drug therapy
CPT/HCPCS: 36415; 74019; 80053; 83605; 83690; 84484; 85025; 86140; 93005; 99284; A9270

== ENCOUNTER 2022-05-31 18:13 | Emergency (ER) | payer MEDICARE ==
[2022-05-31 18:49] VITALS: BP 161/69; PULSE 105
[2022-05-31 19:24] LABS: ESTIMATED GFR 89 mL/min (>60)
[2022-05-31 19:32] LABS: CORONAVIRUS COVID-19 NAA NEGATIVE (NEGATIVE)
[2022-05-31] MEDS ORDERED: Oseltamivir 75 MG Cap PO ONE (19:54)
[2022-05-31] MEDS ORDERED: Ibuprofen 400 MG Tab PO ONE (19:57)
== END 2022-05-31 21:13 | disposition home or self-care (01) ==
LOC: JP.ED 18:13
DX: J10.1 Influenza due to other identified influenza virus with other respiratory manifestations (principal); E78.00 Pure hypercholesterolemia, unspecified; I10 Essential (primary) hypertension; K21.9 Gastro-esophageal reflux disease without esophagitis; E11.9 Type 2 diabetes mellitus without complications; Z91.011 Allergy to milk products; Z88.5 Allergy status to narcotic agent; Z88.8 Allergy status to other drugs, medicaments and biological substances; Z79.82 Long term (current) use of aspirin; Z79.899 Other long term (current) drug therapy; Z79.84 Long term (current) use of oral hypoglycemic drugs; Z20.822 Contact with and (suspected) exposure to COVID-19
CPT/HCPCS: 0241U; 36415; 71046; 80053; 85025; 99284; A9270

== ENCOUNTER 2024-09-14 08:25 | Day surgery (SDC) | payer MEDICARE ==
[2024-09-14] MEDS: Lactated Ringers 1,000 ML IV SCH (09:21)
[2024-09-14] MEDS ORDERED: Propofol 200 MG/20 ML SDV ONE (10:37)
[2024-09-14] MEDS ORDERED: fentaNYL 100 MCG/2 ML SDV ONE (10:37)
[2024-09-14 13:17] VITALS: BP 138/76; PULSE 70
== END 2024-09-14 13:15 | disposition home or self-care (01) ==
LOC: JP.SDS 08:25
PROVIDERS: ATTEND Surgery
DX: R19.7 Diarrhea, unspecified (principal); I10 Essential (primary) hypertension; K21.9 Gastro-esophageal reflux disease without esophagitis; E11.9 Type 2 diabetes mellitus without complications; E78.5 Hyperlipidemia, unspecified
CPT/HCPCS: 45378; J2704; J3010; J7120; 00812-QZ